=== PATIENT | female | born 1980 | race Caucasian/White ===

== ENCOUNTER 2019-03-20 09:23 | Outpatient (CLI) | payer BC, SELFPAY ==
[2019-03-20 12:40] LABS: BUN 16 mg/dL (7-18); CREATININE 0.79 mg/dL (0.55-1.02); Calcium 8.5 mg/dL (8.5-10.1); Calculated LDL 110 mg/dL; Chloride 103 mmol/L (98-107); Cholesterol 168 mg/dL (50-200); Glucose 122 mg/dL (70-100); HDL Cholesterol 45 mg/dL (40-60); Sodium 138 mmol/L (136-145); Triglyceride 68 mg/dL (30-150)
== END 2019-03-20 09:43 ==
PROVIDERS: PCP Nurse Practitioner Family; Visit Provider Nurse Practitioner Family
DX: Z00.00 Encounter for general adult medical examination without abnormal findings (principal); Z13.220 Encounter for screening for lipoid disorders; Z13.228 Encounter for screening for other metabolic disorders; Z13.1 Encounter for screening for diabetes mellitus
CPT/HCPCS: 36415; 80048; 80061; 83721; 83036

== ENCOUNTER 2019-04-13 03:51 | Outpatient (CLI) | payer BC, SELFPAY ==
--- NOTE | 2019-04-13 08:53 | DI.MAMMO_ITS ---
SYMPTOM/DIAGNOSIS: SCREENING Z12.31 MAMMOGRAM: 04/13 Mammograms were interpreted according to the usual protocol including computer analysis with CAD system, tomosynthesis and C view imaging. Today's examination is a baseline examination. The breasts are heterogeneously dense. There are multiple areas of asymmetric density bilaterally. There are faint well circumscribed nodules of the left breast, the largest measuring about 16 mm in diameter which lies in the central portion of the breast and is most clearly seen on tomographic images on the CC view. Additional 6 mm central nodule is seen on tomographic views projected laterally in the left breast and the retroareolar portion of the breast. This also appears fairly well circumscribed. CONCLUSION: Left breast nodules including a 16 mm in diameter presumed mass on this baseline examination. The findings are most suggestive of cysts but solid lesion is not excluded. Breast ultrasound requested for correlation. Category 0. breast density category C. MQSA ASSESSMENT OF FINDINGS: Incomplete: Needs additional imaging evaluation. Category 0. Patient will receive a letter notifying them of these results. Bi-RADS category C. The breasts are heterogeneously dense, which may obscure small masses.
== END 2019-04-13 04:11 ==
PROVIDERS: PCP Nurse Practitioner Family; Visit Provider Nurse Practitioner Family
DX: Z12.31 Encounter for screening mammogram for malignant neoplasm of breast (principal); R92.8 Other abnormal and inconclusive findings on diagnostic imaging of breast
CPT/HCPCS: 77063; 77067

== ENCOUNTER 2019-04-19 00:47 | Outpatient (CLI) | payer BC, SELFPAY ==
--- NOTE | 2019-04-19 10:53 | DI.US_ITS ---
SYMPTOM/DIAGNOSIS: F/U MAMMO, LT BREAST NODULES LEFT BREAST ULTRASOUND: Comparison is made with mammogram of 04/13/19 which showed central areas of nodularity. Left breast ultrasound shows simple cysts in the subareolar tissue, centrally in the breast, the largest measuring 1.7 cm. There is an additional 1.6 cm. cyst as well as a 9 mm. cyst. No solid masses are seen. There is no ductal dilatation. IMPRESSION: Category 2, negative breast ultrasound with benign findings of cysts in the central breast tissue. Yearly screening mammography is recommended. MQSA ASSESSMENT OF FINDINGS: Negative with benign findings. Category 2. Patient will receive a letter notifying them of these results.
== END 2019-04-19 01:07 ==
PROVIDERS: PCP Nurse Practitioner Family; Visit Provider Nurse Practitioner Family
DX: Z12.31 Encounter for screening mammogram for malignant neoplasm of breast (principal); R92.8 Other abnormal and inconclusive findings on diagnostic imaging of breast; N60.12 Diffuse cystic mastopathy of left breast
CPT/HCPCS: 76642

== ENCOUNTER → 2023-06-02 02:49 | Outpatient (CLI) | payer BC, SELFPAY ==
--- NOTE | 2023-06-02 07:15 | DI.MAMMO_ITS ---
Exam(s) MAMMO SCREENING EXAM: MAMMO SCREENING CLINICAL HISTORY: screening, z12.39. TECHNIQUE: Bilateral full field digital CC and MLO mammographic images were obtained with 3D tomosyn thesis and utilizing computer aided detection (CAD). COMPARISON: Prior 2019 mammograms and ultrasound were reviewed. FINDINGS: Fibroglandular tissue pattern is again noted be moderately dense, this somewhat decreasing the sensit ivity of the mammogram for finding hidden underlying lesions Small nodular density anteriorly in the left breast is un unchanged from 2019 There are no new spiculated masses nor malignant appearing microcalcification groups. There is no significant architectural distortion nor skin thickening-retraction. IMPRESSION: Dense bilateral fibroglandular tissue. Stable benign-appearing findings. No obvious radiographic ev idence of malignancy. BI-RADS Category 2 - Benign Findings Breast Density - Category C - Heterogeneously dense Breast density Category C or D implies that the patient has dense breast tissue. Dense breast tissue can make it harder to find cancer on a mammogram. Dense breast tissue is also associated with an incr eased risk of breast cancer. This information about the result of the mammogram report was provided to the patient to raise their awareness. Use this report when you speak with the patient about their risks for breast cancer, which includes their family history. At that time, you may recommend additional screening tests (Ultrasoun d or MRI) as these tests may add significant information. A negative radiographic report should not delay biopsy if a dominant or clinically suspicious mass is present. Up to ten percent of cancers are not identified on mammography. A negative report may reinforce clinical impression. Adenosis and dense breasts may obscure an underlying neoplasm. False positive reports average 6 to 10%. Patient will receive a letter notifying them of these results.
== END ==
PROVIDERS: PCP Nurse Practitioner Family; Visit Provider Nurse Practitioner Family
DX: Z12.31 Encounter for screening mammogram for malignant neoplasm of breast (principal)
CPT/HCPCS: 77063; 77067

== ENCOUNTER 2023-10-06 03:07 | Outpatient (CLI) | payer BC, SELFPAY ==
[2023-10-06 09:17] LABS: Hemoglobin A1C 10.4 % (<5.7)
[2023-10-06 09:58] LABS: ALT 36 U/L (14-59); AST 29 U/L (15-37); Albumin 3.7 g/dL (3.4-5.0); Alkaline Phosphatase 82 U/L (46-116); Anion Gap 11.7 mmol/L (3-11); BUN 11 mg/dL (7-18); Bilirubin, Total 0.4 mg/dL (0.2-1.0); CO2 25.3 mmol/L (21.0-32.0); CREATININE 0.9 mg/dL (0.55-1.02); Calcium 8.9 mg/dL (8.5-10.1); Chloride 98 mmol/L (98-107); Estimated GFR 80.34 (mL/min/1.73m2); Glucose 262 mg/dL (74-106); Potassium 4.2 mmol/L (3.5-5.1); Sodium 135 mmol/L (136-145); TSH (W/Ref FT4) 2.46 uIU/mL (0.36-3.74); Total Protein 7.5 g/dL (6.4-8.2)
[2023-10-06 10:13] LABS: Calculated LDL 137 mg/dL (<100); Cholesterol 211 mg/dL (<200); HDL Cholesterol 42 mg/dL (40-60); Triglyceride 164 mg/dL (<150)
== END 2023-10-06 03:08 | disposition home or self-care (01) ==
LOC: LBO 03:08
PROVIDERS: PCP Nurse Practitioner Adult Health; Referring Provider Nurse Practitioner Adult Health; Visit Provider Nurse Practitioner Adult Health
DX: Z13.220 Encounter for screening for lipoid disorders (principal); R73.03 Prediabetes
CPT/HCPCS: 36415; 80053; 80061; 83036; 84443

== ENCOUNTER 2023-11-10 18:06 | Outpatient (REF) | payer BC, SELFPAY ==
--- NOTE | 2023-11-10 12:30 | PAPFT_PTH ---
PATIENT: Hannah Villalpando LOC: [facility]#:[id number] AGE/SX: 43/F ROOM: RE11/10/[address]: Jennifer Jackson APRN : 1980 BED: DIS: 11/10/2023 SPEC #: [id number] RECD: 11/10/23 18:23 STATUS: LEON REQ #: [id number] GAIL: 11/10/23 12:[address]: Jennifer Jackson DEPT: [facility] Cytology RECD BY: Carolina Meyers Tissues: 1 - CX/ENDOCX FOR PAP SMEARS Procedures: PAP THIN PREP/UVM Screening HPV DNA PROBE Comments: [id number]
== END 2023-11-10 18:07 | disposition home or self-care (01) ==
LOC: NCHCN 18:06
PROVIDERS: PCP Nurse Practitioner Adult Health; Visit Provider Nurse Practitioner Adult Health
DX: Z01.419 Encounter for gynecological examination (general) (routine) without abnormal findings (principal)
CPT/HCPCS: 88142; 87624

== ENCOUNTER 2023-11-27 07:42 | Emergency (ER) | payer BC, SELFPAY ==
[2023-11-27 07:44] VITALS: BP 174/81; PULSE 82; RESP 18; TEMP 36.6; O2SAT 100
--- NOTE | 2023-11-27 07:45 | DI.RAD_ITS ---
Exam(s) XR SHOULDER RT COMPLETE 2+V EXAM: XR SHOULDER RT COMPLETE 2+V CLINICAL HISTORY: pain. TECHNIQUE: 2D digital imaging was performed. Five views. COMPARISON: No exams were available for comparison FINDINGS: BONES: No acute fracture is present. No bony destructive lesion is seen. JOINTS: No dislocation present. No significant degenerative changes. SOFT TISSUE: Heavy calcification seen in the region of the distal supraspinatus tendon consistent wit h calcific tendinosis. IMPRESSION: Calcific tendinosis. DATA REPOSITORY: RADIATION DOSE DELIVERED:
--- NOTE | 2023-11-27 07:57 | ED.GENADUL_ITS ---
Discharge Plan Disposition Patient Disposition: Home Condition: Stable Discharge Details Clinical Impression: Pain in right shoulder Primary Care Provider: Jennifer Jackson ED Provider: Mannie Kelsey Home Meds and New Rx's Prescriptions: Continued Mounjaro 5 mg/0.5 mL pen injector 5 mg subcut QWEEK Qty: 2 0RF Mounjaro 2.5 mg/0.5 mL pen injector 2.5 mg subcut QWEEK 28 Days Qty: 2 0RF (DME) blood-glucose meter Misc See Rx Instructions .MEDSUPPLY Qty: 1 0RF Rx Instructions: As directed to check blood glucose daily. No insulin. Dispense covered brand. (DME) Blood Glucose Test Strip See Rx Instructions .MEDSUPPLY Qty: 100 3RF Rx Instructions: As directed to check blood glucose daily. No insulin. Dispense covered brand. (DME) lancets Misc See Rx Instructions .MEDSUPPLY Qty: 100 3RF Rx Instructions: As directed to check blood glucose daily. No insulin. Dispense covered brand. Discharge Instructions Additional Instructions: Did not see any concerning findings on your x-ray you do appear to have arthritis. If the radiologist sees anything of concern I will give you a call. Wear the sling as needed for comfort Take 1000 milligrams of acetaminophen and 600 mg of ibuprofen every 6 hours as needed Follow-up with your primary care provider if symptoms continue in 1 to 2 weeks If you feel more ill or have new symptoms such as severe chest pain or fevers return to the emergency department for reevaluation HPI General Mode of arrival: ambulatory . Date/Time Provider Initiated Documentation: 11/27/23 07:44 . Limitations to Documentation: no limitations . Information obtained by: patient . History of Present Illness 43 year old F presents to the emergency department with the chief complaint of right shoulder pain, described as moderate, Quality is described as aching, Patient started experiencing this month(s) (1) and it has been constant. Rest improves symptom(s), Movement worsens symptoms . Patient notes no other symptoms.; denies chest pain, fever/chills and shortness of breath. Patient did receive the following treatments prior to arrival, NSAID Related Data Home Medications Medication Instructions Recorded Confirmed blood sugar diagnostic (Blood #100 ea 11/10/23 11/27/23 Glucose Test strips) blood-glucose meter #1 ea 11/10/23 11/27/23 lancets #100 ea 11/10/23 11/27/23 tirzepatide 2.5 mg/0.5 mL 2.5 mg (0.5 mL) subcut QWEEK 4 11/10/23 11/27/23 subcutaneous pen injector weeks #2 mL (Mounjaro) tirzepatide 5 mg/0.5 mL 5 mg (0.5 mL) subcut QWEEK #2 mL 11/10/23 11/27/23 subcutaneous pen injector (Mounjaro) Previous Rx's Medication Instructions Recorded blood sugar diagnostic (Blood #100 ea 11/10/23 Glucose Test strips) blood-glucose meter #1 ea 11/10/23 lancets #100 ea 11/10/23 tirzepatide 2.5 mg/0.5 mL 2.5 mg (0.5 mL) subcut QWEEK 4 11/10/23 subcutaneous pen injector weeks #2 mL (Mounjaro) tirzepatide 5 mg/0.5 mL 5 mg (0.5 mL) subcut QWEEK #2 mL 11/10/23 subcutaneous pen injector (Mounjaro) Allergies Allergy/AdvReac Type Severity Reaction Status Date / Time No Known Allergies Allergy Unverified 11/27/23 07:48 General Stated Complaint: Orthopedic ODILIA: 4 Review of Systems All systems reviewed & are unremarkable except as noted in HPI and below Constitutional Constitutional: Denies chills, Denies fever(s) and Denies weakness Cardiovascular Cardiovascular: Denies chest pain and Denies dyspnea Respiratory Respiratory: Denies cough and Denies dyspnea Gastrointestinal Gastrointestinal: Denies abdominal pain, Denies nausea and Denies vomiting Musculoskeletal Musculoskeletal: Denies joint swelling Integumentary/Breasts Skin/Breast: Denies rash Neurologic Neurologic: Denies weakness Exam Const General: no acute distress Orientation: alert HENMT Head: normal to inspection Ears: external ears normal General nose exam: external nose normal Mouth: moist mucous membranes Eyes General: appearance normal, both eyes and all related structures Neck Neck: normal visual inspection Resp Effort & Inspection: normal respiratory effort and able to speak in complete sentences Cardio Rate: regular rate Skin General skin exam: no rashes or lesions noted Neuro General: patient alert and patient oriented x3 Extrem General: normal to inspection, capillary refill normal, no joint enlargement and no clubbing, cyanosis or edema Psych Mental Status: mental status grossly normal Course Vital Signs Vital signs: Vital Signs Temperature 36.6 C 11/27/23 07:44 Pulse 82 11/27/23 07:44 Respiratory Rate 18 11/27/23 07:44 Blood Pressure 174/81 H 11/27/23 07:44 Pulse Oximetry 100 11/27/23 07:44 Temperature 36.6 C 11/27/23 07:44 Temperature Source Oral 11/27/23 07:44 Pulse 82 11/27/23 07:44 Respiratory Rate 18 11/27/23 07:44 Respiratory Effort Normal, Non-Labored 11/27/23 07:49 Blood Pressure 174/81 H 11/27/23 07:44 Blood Pressure Position Sitting 11/27/23 07:44 Pulse Oximetry 100 11/27/23 07:44 Oxygen Delivery Method Room Air 11/27/23 07:44 Oxygen Flow Rate 0 11/27/23 07:44 Medical Decision Making 43-year-old female with a history of diabetes, comes in with 1 month of nontraumatic right shoulder pain. Denies any fevers, arm swelling, numbness, paresthesias. No chest pain or difficulty breathing. She states that trying to move the shoulder increases the pain. She appears well on exam in no distress, she localizes the pain to the anterior and posterior right shoulder and has reproducible tenderness in this area when she tries to abduct her shoulder she has increased pain. There is no warmth or erythema, no arm swelling, intact distal sensation and pulses. Suspect tendinitis versus bursitis, will obtain x- rays to exclude pathological fracture. She has no findings on history or exam to suggest entities such as septic joint or osteomyelitis. Patient stable, x-ray on my read shows no acute findings, current turnaround time for V rad report is estimated to be 114 minutes. Discussed results with patient and she does not want to stay for repeat, I feel this is reasonable will call her if the read sees anything emergent on the x-ray. Will provide sling to use for comfort, advised follow-up with PCP and return precautions given Differential Diagnosis Differential Diagnosis: Tendinitis, rotator cuff injury, bursitis Imaging Data Radiologic Study: Attestation: I personally reviewed and interpreted this imaging study as follows: Imaging: X-Ray My impression: No acute findings Quality:SDOH Health Related Social Needs: No Data to Display PFSH All Active Problems (Updated 11/27/23 @ 08:51 by Mannie Kelsey MD) Pain in right shoulder (Acute) New onset type 2 diabetes mellitus (Acute) Family history of diabetes mellitus (Chronic) M Hyperlipidemia (Chronic) Prediabetes (Chronic) Obesity (BMI 30-39.9) (Chronic) Surgical History No significant past surgical history Family History (Updated 09/03/23 @ 09:32 by Jennifer Jackson NP) Mother Type 2 diabetes mellitus Dementia Father Alcohol abuse Hyperlipidemia Glaucoma Asthma Hypertension Type 2 diabetes mellitus Sister No problems noted. Sister Type 2 diabetes mellitus Maternal Grandfather Type 2 diabetes mellitus Hypertension Heart disease Neoplasm Unknown type Maternal Grandmother Pancreatic cancer Paternal Grandfather Type 2 diabetes mellitus Hypertension Heart disease Cancer of kidney Paternal Grandmother Stroke Paternal Aunt Heart disease Social History (Updated 11/10/23 @ 11:19 by Zenobia Pickard) Smoking/Tobacco Use Status: Never Second Hand Exposure: Yes Smoking risk assessment performed?: Yes Alcohol Intake: current Alcohol Intake frequency: a few times a week Alcohol type: beer and wine Drug use: Rarely Substance use type: marijuana Adopted: No Caregiver/Support person: No Foster care: No Household members: spouse Housing: house Number of Children: 0 number of grandchildren: 0 Communication Needs: Corrective Lenses Education Level: high school Do you need help understanding health information?: Rarely current occupation: [employer] Pets and animals: Yes (1) Pets and animals: dog(s) Sexually active: Yes Do you think of yourself as: straight/heterosexual Current gender identity: female What is your relationship status?: How often do you talk on the phone with friends or family?: once per week How often do you get together with friends or relatives?: once per week How often do you attend advent or zoroastrian services?: decline to answer Do you belong to any clubs or organized social groups?: no Panel score (0-1 are the most socially isolated patients): 1 What type of physical activity do you participate in: none Duration: decline to answer Frequency: decline to answer Baylee/Bahai: None Special baylee needs: No Seatbelt use: always Helmet use: Yes Helmet use: always Drive intox or ride w/intox laundry route driver: No Do you feel safe at home: Yes Do you feel safe in your relationship?: Yes Female Reproductive History Menstrual control method: none History History 0 Para Hx # Term Pregnancies Multiple births Hx # Pregnancies Ectopic pregnancies AB induced Hx Number of Living Children AB spontaneous PAWSS Have you Been Recently Intoxicated or Drunk Within the Last 30 days?: No Have you Ever Experienced Previous Episodes of Alcohol Withdrawal?: No Have you ever Experienced Withdrawal Seizures?: No Have you ever Experienced Delirium Tremens(DT)s?: No Have you ever undergone Alcohol Rehabilitation Treatment (i.e, inpt ot outpatient treatment programs)?: No Have you ever Experienced Blackouts?: No Have you ever Combined Alcohol with other Downers within the last 90 days?: No Have you ever Combined Alcohol with any other Substance of Abuse during the last 90 days?: No Positive Blood Alcohol level on Presentation? [PCS.BAL]: No Evidence of Increased Autonomic Activity (i.e. HR>120, tremor, sweating, agitation, nausea)?: No Result: 0
[2023-11-27] MEDS: Ketorolac 15 MG/ML VIAL IM (08:08)
--- NOTE | 2023-11-27 09:25 | DI.VRAD_ITS ---
PROCEDURE INFORMATION: Exam: XR Right Shoulder Exam date and time: 11/27/2023 8:22 AM Age: 43 years old Clinical indication: Other: Pain TECHNIQUE: Imaging protocol: Radiologic exam of the right shoulder. Views: 2 or more views. COMPARISON: No relevant prior studies available. FINDINGS: Bones/joints: There is calcific rotator cuff tendinopathy. No acute fracture or malalignment. Soft tissues: Unremarkable. IMPRESSION: Calcific rotator cuff tendinopathy. Dictated and Authenticated by: Annel Lee MD. Ordering:VINICIUS Chand MD
== END 2023-11-27 09:14 | disposition home or self-care (01) ==
PROVIDERS: Emergency Provider Emergency Medicine; PCP Nurse Practitioner Adult Health
DX: M25.511 Pain in right shoulder (principal)
CPT/HCPCS: 96372; 99283; 73030; J1885

== ENCOUNTER 2024-04-25 03:08 | Outpatient (CLI) | payer BC, SELFPAY ==
[2024-04-25 08:30] LABS: Hemoglobin A1C 6.1 % (<5.7)
[2024-04-25 08:41] LABS: COMMENT (LAB VIEW ONLY) 42.93 mg/dL
[2024-04-25 08:47] LABS: BUN 17 mg/dL (7-18); CREATININE 0.9 mg/dL (0.55-1.02); Calcium 8.7 mg/dL (8.5-10.1); Calculated LDL 113 mg/dL (<100); Chloride 100 mmol/L (98-107); Cholesterol 177 mg/dL (<200); Estimated GFR 80.34 (mL/min/1.73m2); Glucose 123 mg/dL (74-106); HDL Cholesterol 46 mg/dL (40-60); Sodium 136 mmol/L (136-145); Triglyceride 94 mg/dL (<150)
== END 2024-04-25 03:09 | disposition home or self-care (01) ==
LOC: LBO 03:08
PROVIDERS: Absent Provider Nurse Practitioner Adult Health; PCP Nurse Practitioner Adult Health; Referring Provider Nurse Practitioner Adult Health; Visit Provider Nurse Practitioner Adult Health
DX: E78.5 Hyperlipidemia, unspecified (principal); E11.9 Type 2 diabetes mellitus without complications
CPT/HCPCS: 36415; 80048; 80061; 82043; 82570; 83036